=== PATIENT | female | born 1990 | race Two or more races ===

== ENCOUNTER 2025-04-08 00:53 | Emergency (ER) | payer OTHER, SELFPAY ==
--- OUTSIDE RECORDS SUMMARY | 2025-04-07 21:40 | XMS_ITS | Encounter Summary ---
Author Organization [facility] Address [address] [place] [address] Care Team Providers Care Cable Television Program Director Name Role Phone Gerald Randhawa MD Primary Care Provider [phone] Reason for Visit * Reason Comments Eye Pain Right eye swelling t o lower lid x 1 day Encounter Details Date Type Department Care Team (Late st Contact Info) Description 04/07/2025 9:40 PM EDT - 04/08/2025 1:53 AM EDT Emergency [facility] Emergency [address] [place] [id number] Discharge Disposition: Home or Self Care Social History Tobacco Use Types Packs/Day Years Used Date Smoking Tobacco: Never Smokeless Tobacco: Never Alcohol Use Standard Drinks/Week Comments Yes 0 (1 standard drink = 0.6 oz pur e alcohol) Comments Unknown Sex and Gender Information Value Date Recorded Sex Assigned at Not on file Legal Sex Female 4:35 AM EST Gender Identity Not on file Sexual Orientation Not on file documented as of this encounter Last Filed Vital Signs Vital Sign Reading Time Taken Comments Blood Pressure 99/70 04/07/2025 9:49 PM EDT Pulse 58 04/07/2025 9:49 PM EDT Temperature 36.6 C (97.9 F) 04/07/2025 9:49 PM EDT Respiratory Rate 16 04/07/2025 9:49 PM EDT Oxygen Saturation 97% 04/07/2025 9:49 PM EDT Inhaled Oxygen Concentration - - Weight 81.6 kg (180 lb) 04/07/2025 9:49 PM EDT Height 157.5 cm (5' 2 ) 04/07/2025 9:49 PM EDT Body Mass Index 32.92 04/07/2025 9:49 PM EDT documented in this encounter Discharge Disposition Disposition Code Departure Means Destination Home or Self Care documented in this encounter Progress Notes * Grace Bowser RN - 04/07/2025 9:43 PM EDT Right eye lower lid swelling x 1 day. No relief with use of tea bags on eye. documented in this encounter Plan of Treatment Not on file documented as of this encounter Visit Diagnoses Not on filedocumented in this encounter Care Teams Cable [employer] Program Director Relationship Specialty Start Date End Date Gerald Randhawa MD PCP - General Internal Medicine 11/28/20 documented as of this encounter
--- NOTE | ~2025-04-08 | CT_ITS ---
CLINICAL HISTORY: R. periorbital cellulitis CT soft tissue neck with contrast Comparison: None provided Findings: The visualized intracranial contents are unremarkable. Pharyngeal mucosal space, parapharyngeal fat, prevertebral tissues, and epiglottis are within normal limits. Slight asymmetric prominence of the right palatine tonsil. Salivary glands are unremarkable. No sialoliths. 2 cm hypodense left thyroid nodule. Mild inflammatory change within the pre maxillary fat on the right. There is mild inflammatory thickening of the right eyelid. Orbital contents are unremarkable. Globe is intact. No extraconal or intraconal fluid collections or inflammatory change. Symmetric appearance of the extraocular musculature. Paranasal sinuses and mastoid air cells are predominantly clear. Mild polypoid mucosal thickening in the left maxillary sinus. Left-sided dental caries. No consolidation at the lung apices. No acute fracture or dislocation. IMPRESSION: Mild preseptal inflammation on the right. Unremarkable orbital contents. No fluid collections. This document has been electronically signed by: Jennifer Carey MD on 04/08/2025 05:22:55
[2025-04-08 01:05] VITALS: BP 108/76; PULSE 81; RESP 18; TEMP 36.7; O2SAT 100; BMI 31.7
--- NOTE | 2025-04-08 03:18 | ED_ITS ---
HPI - General Adult General Chief complaint: Eye Problems Stated complaint: eye is swollen / burning Time Seen by Provider: 04/08/25 02:52 Source: patient Limitations: no limitations History of Present Illness ED Provider: Love Mesa PA-C HPI narrative: 34-year-old female presents with painful right eye swelling x1 day. The swelling involves the lower lid. Patient states the eye itself feels pruritic and has a burning sensation at times, with the associated watery discharge. Patient states she woke with a white discharge this morning. Patient states she feels pain with extraocular eye movements and pressure associated with the lower lid when she leans forward. The eye itself is not red. Denies new facial products, cough or cold symptoms, fever, sick contacts with similar symptoms. Patient denies potential foreign body/projectile the could have struck the eye. The patient does not use contact lenses Related Data Previous Rx's ?Medication ?Instructions ?Recorded cephalexin 500 mg capsule 500 mg PO BID #14 caps 04/08 erythromycin 5 mg/gram (0.5 %) eye 0.5 inch ophthalmic (eye) TID #3.5 04/08/25 ointment grams ibuprofen 600 mg tablet 600 mg PO Q8H PRN pain #20 t abs 04/08/25 Allergies Allergy/AdvReac Type Severity Reaction Status Date / Time No Known Allergies Allergy Verified 04/08/25 01:10 Review of Systems 2 Review of Systems: Yes all other systems are reviewed and are negative Constitutional: Constitutional: Denies fatigue, Denies fever(s) and Denies headache(s) Eyes: Eyes: Denies change in vision, Denies irritation, Denies itchy eyes, Reports eye pain and Reports other (Swollen lower lid) ENT: Denies dizziness, Denies headache(s) and Denies nasal congestion Respiratory: Respiratory: Denies cough Gastrointestinal: Gastrointestinal: Denies nausea and Denies vomiting Neurologic: Denies dizziness and Denies headache(s) Endocrine: Endocrine: Denies fatigue Allergic/Immunologic: Allergic/Immunologic: Denies itchy eyes PMFSH Past Medical History Attestation statement: The following information was validated with the patient. Social History Social History Advance Directives: No Do you have a plan to hurt others: No Plan Physical Exam ED Vital Signs: Vital Signs - 24 hr 04/08/25 01:05 04/08/25 04:14 04/08/25 05:59 Temperature 98.1 F 98.0 F Pulse Rate 81 64 76 Respiratory Rate 18 18 20 Blood Pressure 108/76 98/63 110/76 Pulse Oximetry 100 98 100 Oxygen Delivery Method Room Air Room Air Room Air BMI result Body Mass Index 31.7 Const Other: Alert Orientation/consciousness: patient oriented x3 Eyes Other: Extraocular eye movements intact, patient states she is having pressure with movement, the palpebral and bulbar conjunctiva are not injected, the lower lid is edematous and erythematous, watery discharge appreciated Resp Effort & Inspection: normal respiratory effort Cardio Other: Normal peripheral perfusion Skin Other: Warm dry no rash Neuro General: patient oriented x3, gait normal, no focal motor deficits and CN's II- XI intact bilaterally Psych Other: Cooperative, somewhat hostile, stating that she has been waiting too long Medications Administered Discontinued Medications Generic Name Dose Route Start Last Admin Trade Name Freq PRN Reason Stop Dose Admin Iohexol 75 ml 04/08/25 04:39 04/08/25 04:39 Iohexol 350 Mg/Ml 100 Ml Infus..Btl IV 04/08/25 04:40 75 ml ONCE ONE Administration Ketorolac Tromethamine 15 mg 04/08/25 03:17 04/08/25 03:52 Ketorolac Tromethamine 15 Mg/Ml Vial IVPUSH 04/08/25 03:18 15 mg ONCE ONE Administration Morphine Sulfate 4 mg 04/08/25 03:17 04/08/25 03:52 Morphine Sulfate 4 Mg/Ml Cartridge IVPUSH 04/08/25 03:18 4 mg ONCE ONE Administration Protocol Medical Decision Making Medical Decision Making MDM Narrative: 34-year-old female presents with painful right eye swelling x1 day. The swelling involves the lower lid. Patient states the eye itself feels pruritic and has a burning sensation at times, with the associated watery discharge. Patient states she woke with a white discharge this morning. Patient states she feels pain with extraocular eye movements and pressure associated with the lower lid when she leans forward. The eye itself is not red. Denies new facial products, cough or cold symptoms, fever, sick contacts with similar symptoms. Patient denies potential foreign body/projectile the could have struck the eye. The patient does not use contact lenses No chronic issues History: Per patient I have considered the following differential diagnoses: Blepharitis, conjunctivitis, periorbital cellulitis, hordeolum, chalazion, entropion Plan: This may be conjunctivitis with blepharitis. However she does have significant swelling and pain, we will obtain a CT scan to rule out periorbital cellulitis. We need to screen basic labs, giving Toradol morphine for her pain. I have independently reviewed the following tests: Labs: CT face: I received sign-out from my colleague DMITRIY Mesa My interpretation of labs: Patient's white blood cell count 11.5, otherwise hematology and chemistry unremarkable CT scan of the neck: We are able to visualize the eyes, mild preseptal inflammation of the right, unremarkable orbital contents. On my physical exam, patient does not have any pain with eye movements. Patient only complaining of pain in the lower eyelid. Patient has an internal stye in the inner eyelid Discussed with the patient that we will prescribe p.o. and ophthalmic antibiotics, patient agrees with plan. Differential Diagnosis Differential Diagnoses: The differential diagnosis associated with the presentation includes Lab Data MDM Lab Attestation statement: I reviewed the patient's lab results. 04/08/25 03:31 04/08/25 03:31 Labs: Lab Results 04/08/25 Range/Units 03:31 WBC 11.5 H (4.8-10.8) X10*3/uL RBC 4.57 (4.20-5.50) X10*6/uL Hgb 13.5 (12.0-16.0) g/dl Hct 38.9 (37.0-47.0) % MCV 85.1 (80.0-98.0) fL MCH 29.5 (27.0-33.0) pg MCHC 34.7 (31.0-35.0) g/dl RDW 12.9 (11.0-16.0) % Plt Count 299 (160-400) X10*3/uL MPV 11.3 (9.4-12.3) fL Immature Gran % (Auto) 0.3 (0.0-0.4) % Neut % (Auto) 63.6 (45-73) % Lymph % (Auto) 26.3 (20-40) % [place] % (Auto) 7.5 (2-11) % Eos % (Auto) 1.9 (0-4) % Baso % (Auto) 0.4 (0-2) % Lymph # (Auto) 3.0 (1.2-4.9) X10*3/uL [place] # (Auto) 0.9 (0.1-1.2) X10*3/uL Eos # (Auto) 0.2 (0.0-0.4) X10*3/uL Baso # (Auto) 0.1 (0.0-0.2) X10*3/uL Abs Immat Gran (auto) 0.04 H (0.00-0.03) X10*3/uL Absolute Neuts (auto) 7.3 (2.0-8.3) x10*3/uL Absolute Nucleated RBC 0.000 (0.0-0.012) X10*3/uL Nucleated RBC % (auto) 0.0 (0.0-0.2) /100WBC ESR 9 (0-20) MM/HR Sodium 140 (135-145) mmol/L Potassium 3.6 (3.3-5.1) mmol/L Chloride 106 (96-108) mmol/L Carbon Dioxide 25 (22-29) mmol/L Anion Gap 13 (12-20) BUN 11 (9-16) mg/dL Creatinine 0.62 (0.5-1.4) mg/dL Estim Creat Clear Calc 127.8 Estimated GFR > 60 Random Glucose 114 (60-115) mg/dL Calcium 9.5 (8.4-10.2) mg/dL Magnesium 2.0 (1.6-2.6) mg/dL C-Reactive Protein 0.31 (< or = 0.50) mg/dL Beta HCG, Quant < 2 mIU/mL Ethyl Alcohol < 10 mg/dL Radiology Impression Discussion of test interpretation with radiology: I have reviewed the radiologist's reading. Radiologist Impression: Findings: The visualized intracranial contents are unremarkable. Pharyngeal mucosal space, parapharyngeal fat, prevertebral tissues, and epiglottis are within normal limits. Slight asymmetric prominence of the right palatine tonsil. Salivary glands are unremarkable. No sialoliths. 2 cm hypodense left thyroid nodule. Mild inflammatory change within the pre maxillary fat on the right. There is mild inflammatory thickening of the right eyelid. Orbital contents are unremarkable. Globe is intact. No extraconal or intraconal fluid collections or inflammatory change. Symmetric appearance of the extraocular musculature. Paranasal sinuses and mastoid air cells are predominantly clear. Mild polypoid mucosal thickening in the left maxillary sinus. Left-sided dental caries. No consolidation at the lung apices. No acute fracture or dislocation. IMPRESSION: Mild preseptal inflammation on the right. Unremarkable orbital contents. No fluid collections. Discharge Plan Discharge Clinical Impression: Blepharitis, Sty, internal Patient Disposition: Home, Self-Care Instructions: Stye (ED), Blepharitis (ED) Additional Instructions: Please follow-up with your primary care physician tomorrow. If you have any worsening or new symptoms, please return to the emergency room or call 911 Prescriptions: New cephalexin 500 mg capsule 500 mg PO BID Qty: 14 0RF erythromycin 5 mg/gram (0.5 %) ointment 0.5 inch ophthalmic (eye) TID Qty: 3.5 0RF ibuprofen 600 mg tablet 600 mg PO Q8H PRN (Reason: pain) Qty: 20 0RF Stand Alone Forms: Work/School Release Interventions: ED Discharge Assessment Last Done: 04/08/25 05:59 Discharge Date/Time: 04/08/25 06:01 Print Language: Argentine
[2025-04-08 03:38] LABS: MANUAL DIFF FLAG NO
[2025-04-08 03:39] LABS: Hematocrit 38.9 % (37.0-47.0); Hemoglobin 13.5 g/dl (12.0-16.0); Imm Gran Abs Auto 0.04 X10*3/uL (0.00-0.03); Imm Gran Pct Auto 0.3 % (0.0-0.4); Lymphocytes Absolute Auto 3.0 X10*3/uL (1.2-4.9); Mean Corpuscular HGB Conc 34.7 g/dl (31.0-35.0); Mean Corpuscular Hemoglobin 29.5 pg (27.0-33.0); Mean Corpuscular Volume 85.1 fL (80.0-98.0); NRBC Abs Auto 0.000 X10*3/uL (0.0-0.012); NRBC Pct Auto 0.0 /100WBC (0.0-0.2); Platelet Count 299 X10*3/uL (160-400); Red Blood Count 4.57 X10*6/uL (4.20-5.50); White Blood Count 11.5 X10*3/uL (4.8-10.8)
--- NOTE | 2025-04-08 03:55 | PC.NURSE ---
IV established, medicated per NOV. Aware of plan for CT.
[2025-04-08 04:05] LABS: Anion Gap 13 (12-20); Blood Urea Nitrogen 11 mg/dL (9-16); Calcium 9.5 mg/dL (8.4-10.2); Carbon Dioxide 25 mmol/L (22-29); Chloride 106 mmol/L (96-108); Creatinine Clr Calc Pharmacy 127.8; Estimated Glomerular Filt Rate > 60; Magnesium 2.0 mg/dL (1.6-2.6); Potassium 3.6 mmol/L (3.3-5.1); Sodium 140 mmol/L (135-145)
[2025-04-08 04:14] VITALS: BP 98/63; PULSE 64; RESP 18; O2SAT 98
--- NOTE | 2025-04-08 04:30 | PC.NURSE ---
Off to CT.
[2025-04-08] MEDS: iohexoL 350 MG/ML 100 ML INFUS..BTL 75 ML IV (04:39)
[2025-04-08 05:59] VITALS: BP 110/76; PULSE 76; RESP 20; TEMP 36.7; O2SAT 100
== END 2025-04-08 06:01 | disposition home or self-care (01) ==
PROVIDERS: Physician Assistant Medical; Emergency Provider Emergency Medicine
DX: H00.022 Hordeolum internum right lower eyelid (principal); H57.11 Ocular pain, right eye
CPT/HCPCS: 36415; 70491; 80048; 80307; 83735; 84702; 85025; 85652; 86140; 96374; 96375; 99283; 99284; J1885; J2270; Q9967

== ENCOUNTER → 2025-04-08 03:21 | Outpatient (BNV) | payer OTHER, SELFPAY | PROVIDERS: Emergency Provider Emergency Medicine; Visit Provider Radiology Diagnostic Radiology | DX: L03.213 Periorbital cellulitis (principal) | CPT/HCPCS: 70491 ==